=== PATIENT | female | born 1975 | race Caucasian/White ===

== ENCOUNTER 2024-02-28 13:53 | Emergency (ER) | payer OTHER ==
[~2024-02-28] VITALS: Ht 167.6 cm; Wt 56.7 kg
[2024-02-28] MEDS ORDERED: ZYRTEC10 M3 PO (14:24)
[2024-02-28] MEDS ORDERED: PEPCID AC10 MG (14:24)
[2024-02-28] MEDS ORDERED: BENADRYL25 MG (14:24)
[2024-02-28] MEDS ORDERED: METHYLPREDNISOLONE SOD SUCC 125 MG VIAL IV ONE (14:45)
[2024-02-28] MEDS ORDERED: DIPHENHYDRAMINE HCL 50 MG/ML VIAL 1ML IV ONE (14:45)
== END 2024-02-28 15:39 | disposition home or self-care (01) ==
LOC: ER 13:55
DX: S61.459A Open bite of unspecified hand, initial encounter (principal); W64.XXXA Exposure to other animate mechanical forces, initial encounter; Y93.89 Activity, other specified; Y92.89 Other specified places as the place of occurrence of the external cause; Y99.8 Other external cause status